=== PATIENT | male | born 1955 | race Caucasian/White ===

== ENCOUNTER 2016-09-18 15:09 | Emergency (ER) | payer SELFPAY ==
[~2016-09-18] VITALS: Ht 175.3 cm; Wt 93.0 kg
[2016-09-18 15:24] VITALS: BP 113/72
--- NOTE | 2016-09-18 15:34 | NUR ---
DR DONAHUE EVALUATED PT IN OF. PATIENT REFUSED ALTERNATIVE MEASURES FOR PAIN CONTROL OFFERED BY .
--- NOTE | 2016-09-18 15:35 | NUR ---
Patient discharged with v/s stable. Pt left without education handouts. Wheel Chair Assisted with to car. All questions addressed prior to discharge. Advised to follow up with PMD.
[2016-09-18 15:37] VITALS: BP 113/72
== END 2016-09-18 15:35 | disposition home or self-care (01) ==
LOC: MED 15:09
DX: Z76.0 Encounter for issue of repeat prescription (principal); Z88.5 Allergy status to narcotic agent; Z98.890 Other specified postprocedural states